=== PATIENT | female | born 1955 | race Caucasian/White ===

== ENCOUNTER → 2021-11-09 | Emergency (ER) | payer BC ==
[~2021-11-09] VITALS: Ht 165.1 cm; Wt 77.1 kg
[~2021-11-09] MED LIST: ALBUMIN 25% 25 GM in PREMIX 1 EA IV ONE; ALBUMIN 5% 25 GM in PREMIX 1 EA IV ONE; CIPROFLOXACIN IV RTU 400 MG in PREMIX 1 EA IV ONE; IV NS 0.9% 1,000 ML BAG IV ONE; METO-543 SL; Magnesium 1GM/D5W 100ML PREMIX 100 ML IV ONE; ONDANSETRON HCL/PF 4 MG/2 ML VIAL IVP ONE; ONDANSETRON HCL/PF 4 MG/2 ML VIAL ONE; PANT40TA2 PO; PANTOPRAZOLE 40 MG VIAL IV ONE; PANTOPRAZOLE 40 MG VIAL ONE; POTASSIUM CL. PREMIX PERIPHER. 150 ML ONE; POTASSIUM CL. PREMIX PERIPHER. 50 ML IV ONE; POTASSIUM CL. PREMIX PERIPHER. 50 ML ONE; SODIUM BICARBONATE SYR 50 MEQ/50 ML DISP.SYRIN IV ONE; SODIUM BICARBONATE SYR 50 MEQ/50 ML DISP.SYRIN ONE
--- NOTE | 2021-11-09 16:20 | NUR ---
pt came in c/o abdominal pain ,n/v for 3 to 4 weeks,pt is a/ox4 ,connected to monitor.
[2021-11-09 16:47] LABS: BASOPHILS % (AUTO) 0.6 % (0.0-2.0); EOSINOPHILS % (AUTO) 0.6 % (0.0-6.0); HEMATOCRIT 35 % (33-45); HEMOGLOBIN 11.3 g/dL (11.5-14.8); LYMPHOCYTES # (AUTO) 1.1 K/uL (0.8-4.8); LYMPHOCYTES % (AUTO) 20.4 % (20.0-44.0); MEAN CORPUSCULAR HGB CONC 32 g/dl (31.0-36.0); MEAN CORPUSCULAR VOLUME 62 fL (82-100); MONOCYTES # (AUTO) 0.4 K/uL (0.1-1.30); MONOCYTES % (AUTO) 7.9 % (2.0-12.0); NEUTROPHILS # (AUTO) 3.8 K/uL (1.8-8.9); NEUTROPHILS % (AUTO) 70.5 % (43.0-81.0); PLATELET COUNT (AUTO) 184 K/uL (150-450); RED BLOOD CELL COUNT(AUTO) 5.61 MIL/uL (4.0-5.2); WHITE BLOOD COUNT (AUTO) 5.4 K/uL (4.3-11.0)
[2021-11-09 16:55] LABS: MAGNESIUM 2.1 mg/dL (1.8-2.4)
[2021-11-09 16:58] LABS: CALCIUM, SERUM 8.5 mg/dL (8.5-10.1); CREATININE 0.7 mg/dL (0.6-1.3); POTASSIUM 2.9 mmol/L (3.5-5.1)
[2021-11-09 17:05] LABS: BAND % (MANUAL) 1 % (0.0-5.0); EOSINOPHILS % (MANUAL) 2 % (0-4); LYMPHOCYTES % (MANUAL) 15 % (16-48); MONOCYTES % (MANUAL) 7 % (0-11.0); NEUTROPHILS % (MANUAL) 75 (42-76)
[2021-11-09 17:09] LABS: ALBUMIN 3.1 g/dL (3.4-5.0); BILIRUBIN,DIRECT 0.1 mg/dL (0.0-0.2); BILIRUBIN,TOTAL 0.8 mg/dL (0.2-1.0); TOTAL PROTEIN, SERUM 7.4 g/dL (6.4-8.2)
[2021-11-09] MEDS: POTASSIUM CL. PREMIX PERIPHER. 50 ML IV SCH ×4 (17:36→20:36)
[2021-11-09 21:47] VITALS: BP 129/90
--- NOTE | 2021-11-09 21:48 | NUR ---
Patient discharged to home in stable condition. Rx,Written and verbal after care instructions given. Patient verbalizes understanding of instruction.IV removed. Catheter intact and site benign. Pressure and 4x4 applied to site. No bleeding noted.
== END | disposition admitted as inpatient to this hospital (09) ==
LOC: ER 16:15
DX: R11.2 Nausea with vomiting, unspecified (principal); E87.1 Hypo-osmolality and hyponatremia; E87.6 Hypokalemia; E87.2 Acidosis; E88.09 Other disorders of plasma-protein metabolism, not elsewhere classified; E46 Unspecified protein-calorie malnutrition; Z79.899 Other long term (current) drug therapy
CPT/HCPCS: 36415; 80048; 80076; 82550; 82962; 83690; 83735; 85007; 85025; 85652; 96361; 96365; 96366; 96367; 96368; 96375; 99285; A4216 ×3; C9113; J0744 ×2; J2405; J3475; J3480 ×2; J3490; P9045; P9047

== ENCOUNTER 2021-11-23 23:51 | Emergency (ER) | payer BC ==
[~2021-11-23] VITALS: Ht 165.1 cm; Wt 77.1 kg
[~2021-11-23 23:51] MED LIST changes: -ALBUMIN 25% 25 GM in PREMIX 1 EA IV ONE; -ALBUMIN 5% 25 GM in PREMIX 1 EA IV ONE; -CIPROFLOXACIN IV RTU 400 MG in PREMIX 1 EA IV ONE; -IV NS 0.9% 1,000 ML BAG IV ONE; -Magnesium 1GM/D5W 100ML PREMIX 100 ML IV ONE; -ONDANSETRON HCL/PF 4 MG/2 ML VIAL IVP ONE; -ONDANSETRON HCL/PF 4 MG/2 ML VIAL ONE; -PANTOPRAZOLE 40 MG VIAL IV ONE; -PANTOPRAZOLE 40 MG VIAL ONE; -POTASSIUM CL. PREMIX PERIPHER. 150 ML ONE; -POTASSIUM CL. PREMIX PERIPHER. 50 ML IV ONE; -POTASSIUM CL. PREMIX PERIPHER. 50 ML ONE; -SODIUM BICARBONATE SYR 50 MEQ/50 ML DISP.SYRIN IV ONE; -SODIUM BICARBONATE SYR 50 MEQ/50 ML DISP.SYRIN ONE
--- NOTE | 2021-11-23 23:53 | NUR ---
PT BIB FROM HOME C/O WEAKNESS AND DIZZY X1 MONTH. + NAUSEA. PT TOLERATING R/A WELL WITH NO SOB. CONNECTED PT TO POX AND MONITOR.
--- NOTE | 2021-11-23 23:58 | NUR ---
DR. OSMAR ZAMORANO AT PT'S BEDSIDE
--- NOTE | 2021-11-24 00:20 | NUR ---
20G IV LINE ESTABLISHED AT [facility]. BLOOD DRAWN AND SENT TO LAB.
[2021-11-24] MEDS ORDERED: IV NS 0.9% 1,000 ML BAG IV ONE (00:30)
[2021-11-24 00:36] LABS: BASOPHILS % (AUTO) 0.6 % (0.0-2.0); EOSINOPHILS % (AUTO) 0.1 % (0.0-6.0); HEMATOCRIT 34 % (33-45); LYMPHOCYTES # (AUTO) 1.7 K/uL (0.8-4.8); LYMPHOCYTES % (AUTO) 35.6 % (20.0-44.0); MEAN CORPUSCULAR HGB CONC 32 g/dl (31.0-36.0); MEAN CORPUSCULAR VOLUME 61 fL (82-100); MONOCYTES # (AUTO) 0.3 K/uL (0.1-1.30); MONOCYTES % (AUTO) 5.5 % (2.0-12.0); NEUTROPHILS # (AUTO) 2.9 K/uL (1.8-8.9); NEUTROPHILS % (AUTO) 58.2 % (43.0-81.0); PLATELET COUNT (AUTO) 218 K/uL (150-450); RED BLOOD CELL COUNT(AUTO) 5.52 MIL/uL (4.0-5.2); WHITE BLOOD COUNT (AUTO) 4.9 K/uL (4.3-11.0)
[2021-11-24 00:45] LABS: MAGNESIUM 1.8 mg/dL (1.8-2.4); PHOSPHORUS 3.3 mg/dL (2.5-4.9)
[2021-11-24 00:54] LABS: CALCIUM, SERUM 9.6 mg/dL (8.5-10.1); CREATININE 0.9 mg/dL (0.6-1.3); POTASSIUM 3.4 mmol/L (3.5-5.1)
[2021-11-24 00:58] LABS: ALBUMIN 3.7 g/dL (3.4-5.0); BILIRUBIN,DIRECT 0.3 mg/dL (0.0-0.2); BILIRUBIN,TOTAL 1.4 mg/dL (0.2-1.0)
[2021-11-24] MEDS ORDERED: SODIUM BICARBONATE SYR 50 MEQ/50 ML DISP.SYRIN IV ONE (01:00)
[2021-11-24] MEDS ORDERED: SODIUM BICARBONATE SYR 50 MEQ/50 ML DISP.SYRIN ONE (01:07)
[2021-11-24 01:21] LABS: PREALBUMIN 21.1 MG/DL (18.0-35.7)
[2021-11-24] MEDS ORDERED: IV PREMIX D5 NS + KCL 1,000 ML IV ONE (01:30)
[2021-11-24] MEDS ORDERED: Magnesium 1GM/D5W 100ML PREMIX 200 ML IV ONE (01:30)
[2021-11-24] MEDS ORDERED: Magnesium 1GM/D5W 100ML PREMIX 100 ML IV ONE ×2 (01:32→02:12)
--- NOTE | 2021-11-24 01:51 | NUR ---
BLOOD DRAWN FOR [facility]
[2021-11-24 01:55] LABS: ABG BASE EXCESS 1.5 mmol/L; ABG PCO2 31.5 mmHg (35.0-45.0); ABG PH 7.505 (7.350-7.450); ABG PO2 22.6 mmHg (75.0-100.0); COHb 0.5 % (0.5-1.5); MetHb 0.4 % (0.0-1.5); O2Hb 43.7 % (94.0-97.0)
[2021-11-24 02:00] LABS: BAND % (MANUAL) 13 % (0.0-5.0); LYMPHOCYTES % (MANUAL) 14 % (16-48); METAMYELOCYTES % 2 % (0-0); MONOCYTES % (MANUAL) 1 % (0-11.0); NEUTROPHILS % (MANUAL) 70 (42-76)
[2021-11-24 02:37] LABS: CHOLESTEROL 216 mg/dL (<200); HDL CHOLESTEROL 65 mg/dL (40-60); LDL 114 mg/dL (0-99); TRIGLYCERIDES 106 mg/dL (30-150)
[2021-11-24] MEDS ORDERED: POTASSIUM CL. PREMIX PERIPHER. 100 ML ONE (02:40)
--- NOTE | 2021-11-24 06:29 | NUR ---
Patient discharged to home in stable condition. Written and verbal after care instructions given. Patient verbalizes understanding of instruction. DC via w/c.
[2021-11-24 06:32] VITALS: BP 115/77
== END 2021-11-24 06:35 | disposition home or self-care (01) ==
LOC: ER 23:54
DX: E87.6 Hypokalemia (principal); E87.1 Hypo-osmolality and hyponatremia; E87.2 Acidosis; R11.2 Nausea with vomiting, unspecified; Z79.899 Other long term (current) drug therapy
CPT/HCPCS: 36415; 36600; 80048; 80061; 80076; 82550; 82803; 83540; 83735; 84100; 84134; 85007; 85025; 93005; 96361; 96365; 96366; 96367; 96375; 99285; J3475 ×2; J3480; J3490 ×2; J7030